=== PATIENT | male | born 1965 | race Caucasian/White ===

== ENCOUNTER 2019-08-17 06:30 | Day surgery (SDC) | payer OTHER ==
[2019-08-16 12:51] LABS: BASOPHILS 0.2 % (0-2); EOSINOPHILS 1.8 % (0-7); HEMATOCRIT 42.3 % (42.0-54.0); HEMOGLOBIN 14.6 g/dL (13.5-17.5); IMMATURE GRANULOCYTES 0.3 % (0-5); LYMPHOCYTES 26.3 % (15-50); MCH 31.3 pg (26.0-34.0); MCHC 34.5 g/dL (31.0-37.0); MCV 90.6 fL (80.0-100.0); MEAN PLATELET VOLUME 9.7 fL (7.4-10.4); MONOCYTES 6.8 % (2-11); NEUTROPHILS 64.6 % (40-80); PLATELET COUNT 278 10x3/uL (130-400); RBC 4.67 10x6/uL (4.20-6.10); RDW 13.6 % (11.5-14.5); WBC 6.5 10x3/uL (4.8-10.8)
[2019-08-16 13:12] LABS: CALC OSMOLALITY 282 mosm/kg (275-300); CARBON DIOXIDE 29.3 mmol/L (21.0-32.0); CHLORIDE - SERUM 103 mmol/L (98-107); CREATININE - SERUM 0.8 mg/dL (0.6-1.3); GLUCOSE 124 mg/dL (74-106); SODIUM 140 mmol/L (136-145); UREA NITROGEN 21 mg/dL (7-18); eGFR NON AFRICAN AMERICAN > 90 mL/min (90-120)
[~2019-08-17] VITALS: Ht 195.6 cm; Wt 128.8 kg
[~2019-08-17 06:30] MED LIST: LOZOL 2.5 MG T2.5 MG PO; NORVASC5 MG PO; VITAMIN D250000 UNIT PO; ZETIA10 MG PO; ZOCOR20 MG PO
[2019-08-17] MEDS ORDERED: OMEPRAZOLE20 M1 PO (07:04)
[2019-08-17 07:06] VITALS: BP 158/76; Ht 195.6 cm; Wt 128.8 kg
[2019-08-17] MEDS ORDERED: HYDROCODON-ACE1 EA10 PO (09:59)
--- NOTE | 2019-08-17 11:20 | NUR ---
PT RESTING QUIETLY IN BED AT THIS TIME. STATES HAVING PAIN LEVEL OF 2/10. DENIES NEEDS AT THIS TIME. PT STATES WILL CALL FOR HELP WHEN HE NEEDS TO GO TO THE BATHROOM.
--- NOTE | 2019-08-17 11:43 | NUR ---
DC INSTRUCTIONS GIVEN TO PT. STATES UNDERSTANDING. PT STATES THAT HE DOES NOT NEED TO GO TO THE BATHROOM YET. WILL CONTINUE TO MONITOR.
--- NOTE | 2019-08-17 13:01 | NUR ---
PT VOIDED. DC'D IV CATH FULLY INTACT. PT LEFT UNIT VIA WC AT 1257
--- NOTE | 2019-08-17 13:37 | OP ---
PATIENT NAME: ADINA TIRADO MEDICAL RECORD: [id number] :69 LOCATION:[facility] ADMISSION DATE: SURGEON: SHASHI THIBODEAUX MD DATE OF OPERATION: 08/17/2019 PREOPERATIVE DIAGNOSES: 1. Gallstones. 2. A 1.5 cm pancreatic pseudocyst. 3. Hypertension. 4. Hypercholesterolemia. POSTOPERATIVE DIAGNOSES: 1. Gallstones. 2. A 1.5 cm pancreatic pseudocyst. 3. Hypertension. 4. Hypercholesterolemia. PROCEDURE: Laparoscopic cholecystectomy with intraoperative cholangiogram. SURGEON: Shashi Thibodeaux MD REPORT OF PROCEDURE: The patient's abdomen was prepped and draped in sterile fashion. A cutdown was made on the superior aspect of the umbilicus, 0 Vicryls were placed on the fascia bilaterally and the fascia was incised with a 15-blade. I then bluntly entered the peritoneal cavity and placed a 12-mm Drea port. Under direct visualization, a 5 mm trocar was placed in the epigastrium and 2 more 5-mm trocars were placed in the right subcostal region. The gallbladder was grasped and elevated. There were no signs of any acute inflammatory changes. The cystic artery and cystic duct were dissected free. The cystic artery was clipped proximally and distally and ligated in standard fashion. The cystic duct was clipped twice proximally and a small opening was made in the duct. We then brought a cook cholangiocath through the anterior abdominal wall, was able to place it into the distal aspect of the cystic duct. An intraoperative cholangiogram was then performed under fluoroscopic guidance. We could see good flow of the contrast through the biliary and hepatic ducts. There was spillage of contrast out into the duodenum through a normal appearing sphincter of Oddi. There was no sign of any masses, strictures, lesions or obstructive processes present. There was some backflow into the patient's pancreatic duct. All of these ducts appeared to be normal in caliber. At this point, the cholangiocath was removed. The cystic duct was clipped twice distally and ligated in standard fashion. The gallbladder was then taken off the liver bed using electrocautery and placed in the right upper quadrant. Any bleeding from the liver bed was then treated with electrocautery. At this point, the ports and insufflation were then removed. The gallbladder was taken out through the umbilicus. The umbilical fascia was closed with interrupted 0 Vicryls times 3. The wounds were then irrigated out with normal saline and infused with 10 mL of 0.25% Marcaine with epinephrine. The skin incisions were all closed with subcutaneous 5-0 Monocryl and dressed appropriately. COMPLICATIONS: None. CONDITION: Stable. ANESTHESIA: General endotracheal and local. OPERATIVE REPORT [id number] ADINA TIRADO BLOOD LOSS: Minimal. TRANSINT:[id number] Voice Confirmation ID: [id number] DOCUMENT ID: [id number] cc: Dr. Smith SHASHI THIBODEAUX MD at 1337 CC: JACKI BERNARD MD [id number] DICTATION DATE: 08/17/19 1004 BALER OPERATOR: 08/17/19 [address] [facility] 08/17/19 [facility] [address] [place] [address]
== END 2019-08-17 12:57 | disposition home or self-care (01) ==
LOC: D.OPS 06:30 → D.PAN 10:45 → D.OPS 12:57
PROVIDERS: ATTEND Surgery
DX: K80.20 Calculus of gallbladder without cholecystitis without obstruction (principal); K86.3 Pseudocyst of pancreas; I10 Essential (primary) hypertension; E78.00 Pure hypercholesterolemia, unspecified